=== PATIENT | male | born 1930 | race Caucasian/White ===

== ENCOUNTER 2020-03-16 10:07 | Inpatient (IN) | payer OTHER ==
[~2020-03-16] VITALS: Ht 177.8 cm; Wt 94.9 kg
[~2020-03-16 10:07] MED LIST: ASPI325 PO; ASPI81EC PO; ATOR20 PO; CLOP75 PO; DOXA1 PO; ERGO400 PO; ESCI10 PO; FINA5 PO; FLUT.05NI; Flomax0.4 MG PO; GLUCHON PO; HYDR1TAB94 PO; INDO50 PO; KEFLEX500 MG PO; Lopressor 25 mg25 MG PO; NITR.4SL SL; Norco 5-325 Ta1 EACH PO; PRAV10 PO; PROM25 PO; TAMS.4ER PO; TERB250 PO; VITAMINS; Vitamin D2000 UNIT PO; [UNRECOGNIZED DRUG - REMARK]
[2020-03-16 10:34] LABS: BASOPHILS ABSOLUTE AUTO 0.06 K/mm3 (0.00-0.23); BASOPHILS PERCENT AUTO 1 % (0-2); EOSINOPHILS ABSOLUTE AUTO 0.11 K/mm3 (0.00-0.68); EOSINOPHILS PERCENT AUTO 1 % (0-6); Hematocrit 49.8 % (37.0-53.0); Hemoglobin 15.3 g/dL (13.5-17.5); IMMATURE GRAN ABSOLUTE AUTO 0.03 K/mm3 (0.00-0.10); IMMATURE GRAN PERCENT AUTO 0 % (0-1); LYMPHOCYTES ABSOLUTE AUTO 1.86 K/mm3 (0.84-5.20); LYMPHOCYTES PERCENT AUTO 19 % (21-46); MONOCYTES ABSOLUTE AUTO 0.53 K/mm3 (0.16-1.47); MONOCYTES PERCENT AUTO 5 % (4-13); Mean Corpuscular HGB 29.7 pg (26.0-34.0); Mean Corpuscular HGB Conc 30.7 g/dL (31.5-36.5); Mean Corpuscular Volume 97 fL (80-100); Mean Platelet Volume 10.9 fL (9.1-12.4); NEUTROPHILS ABSOLUTE AUTO 7.33 K/mm3 (1.96-9.15); NEUTROPHILS PERCENT AUTO 74 % (41-73); Platelet Count 247 K/mm3 (150-400); RDW Standard Deviation 50.1 fL (35.1-46.3); Red Blood Cell Count 5.16 M/mm3 (4.30-5.90); White Blood Cell Count 9.92 K/mm3 (4.00-11.30)
[2020-03-16 10:49] LABS: Alanine Aminotransfer (ALT/SGP 29 U/L (12-78); Albumin, Blood 2.8 g/dL (3.4-5.0); Albumin/Globulin Ratio 0.6 (0.8-1.8); Alk Phos 88 U/L (50-136); Anion Gap 4 mmol/L (6-16); Aspartate Aminotrans (AST/SGOT 25 U/L (12-37); Bilirubin, Total 0.9 mg/dL (0.1-1.0); Blood Urea Nitrogen 15 mg/dL (8-24); Bun/Creatinine Ratio 18.4 (12.0-20.0); CO2, Blood 25 mmol/L (21-32); Calcium, Blood 8.4 mg/dL (8.5-10.1); Chloride, Blood 113 mmol/L (98-108); Creatinine, Blood 0.82 mg/dL (0.60-1.20); Globulin, Blood 4.5 g/dL (2.2-4.0); Glomerular Filtration Rate >60 (60-); Glucose, Blood 115 mg/dL (70-99); Potassium, Blood 4.1 mmol/L (3.5-5.5); Sodium, Blood 142 mmol/L (136-145); Total Protein, Blood 7.3 g/dL (6.4-8.2)
[2020-03-16 11:45] LABS: Influenza A, PCR Negative (NEGATIVE); Influenza B, PCR Negative (NEGATIVE); Resp Syncytial Virus, PCR Negative (NEGATIVE); SARS-Cov-2 (COVID-19) PCR, MMC Negative (NEGATIVE)
--- NOTE | 2020-03-16 17:21 | NUR ---
ASSUMED CARE: PT ARRIVED FROM ED VIA GURNEY. WEARING 4L O2 AT THIS TIME. TAPING MACHINE OPERATOR ARRIVED SHORTLY AFTER PT DID. TAPING MACHINE OPERATOR AT BEDSIDE AT THIS TIME.
--- NOTE | 2020-03-16 17:57 | NUR ---
CALL TO PHARMACY TO VERIFY THAT LOVENOX WAS THEREPEUTICALLY ORDERED FOR PE'S AND DVT, PER REPORT FROM ED RN. KEEP SCDS OFF DUE TO REPORT OF DVT. CLINICAL COORDINATOR AWARE.
[2020-03-16 18:57] LABS: Source, Urine Clean Catch
--- NOTE | 2020-03-16 19:04 | NUR ---
SHIFT SUMMARY: PT ED ADMIT TODAY, ECHO COMPLETED. PT INSISTANT AND IMPULSIVE ABOUT GOING TO BATHROOM. BSC NEXT TO BED, PT DESATURATED INTO 70S AND FINGERTIPS TURNED PURPLE. O2 INCREASED TO 5L. NORMAL SALINE RUNNING. TELE IN PLACE. NSR. BED ALARM ON.
[2020-03-16 19:24] LABS: Appearance, Urine Clear (Clear); Bilirubin, Urine Neg (Neg); Blood, Urine 4+ (Neg); Color, Urine Yellow (P-Yellow); Glucose Qualitative, Urine Neg (Neg); Ketones, Urine 1+ (Neg); Leukocyte Esterase, Urine 2+ (Neg); Nitrite, Urine Neg (Neg); Protein, Urine 2+ (Neg); Urobilinogen, Urine 3+ (Normal)
[2020-03-16 19:38] LABS: Bacteria Few /hpf; Spermatozoa Few /hpf; Squamous Epithelial Cells Rare /hpf (Few)
[2020-03-17 03:50] LABS: BASOPHILS ABSOLUTE AUTO 0.05 K/mm3 (0.00-0.23); BASOPHILS PERCENT AUTO 1 % (0-2); EOSINOPHILS ABSOLUTE AUTO 0.15 K/mm3 (0.00-0.68); EOSINOPHILS PERCENT AUTO 2 % (0-6); Hematocrit 43.4 % (37.0-53.0); Hemoglobin 13.4 g/dL (13.5-17.5); IMMATURE GRAN ABSOLUTE AUTO 0.04 K/mm3 (0.00-0.10); IMMATURE GRAN PERCENT AUTO 0 % (0-1); LYMPHOCYTES ABSOLUTE AUTO 2.08 K/mm3 (0.84-5.20); LYMPHOCYTES PERCENT AUTO 22 % (21-46); MONOCYTES PERCENT AUTO 6 % (4-13); Mean Corpuscular HGB 29.6 pg (26.0-34.0); Mean Corpuscular HGB Conc 30.9 g/dL (31.5-36.5); Mean Corpuscular Volume 96 fL (80-100); Mean Platelet Volume 10.7 fL (9.1-12.4); NEUTROPHILS ABSOLUTE AUTO 6.76 K/mm3 (1.96-9.15); NEUTROPHILS PERCENT AUTO 70 % (41-73); Platelet Count 218 K/mm3 (150-400); RDW Standard Deviation 49.5 fL (35.1-46.3); Red Blood Cell Count 4.53 M/mm3 (4.30-5.90); White Blood Cell Count 9.68 K/mm3 (4.00-11.30)
[2020-03-17 04:12] LABS: Alanine Aminotransfer (ALT/SGP 20 U/L (12-78); Albumin, Blood 2.3 g/dL (3.4-5.0); Albumin/Globulin Ratio 0.6 (0.8-1.8); Alk Phos 82 U/L (50-136); Anion Gap 4 mmol/L (6-16); Aspartate Aminotrans (AST/SGOT 19 U/L (12-37); Bilirubin, Total 0.5 mg/dL (0.1-1.0); Blood Urea Nitrogen 14 mg/dL (8-24); CO2, Blood 22 mmol/L (21-32); Calcium, Blood 7.9 mg/dL (8.5-10.1); Chloride, Blood 118 mmol/L (98-108); Globulin, Blood 3.8 g/dL (2.2-4.0); Glomerular Filtration Rate >60 (60-); Glucose, Blood 91 mg/dL (70-99); Potassium, Blood 4.1 mmol/L (3.5-5.5); Sodium, Blood 144 mmol/L (136-145); Total Protein, Blood 6.1 g/dL (6.4-8.2)
--- NOTE | 2020-03-17 06:33 | NUR ---
SHIFT SUMMARY PT IS VERY FORGETFUL AND DISORIENTED, FORGETS WHAT HE IS TOLD WITHIN MINUTES. PT IS PLEASENT AND COOPERATIVE WITH CARE, FOLLOWS DIRECTIONS, AND DOES NOT PULL AT LINES AND TUBES. PT IS ON 5LPM VIA NC WITH O2 SATS IN THE 90'S, SATS DROP TO THE 80'S WITH ANY ACTIVITY, PT ABLE TO STAND AND USE URNAL BUT O2 SATS DROP TO LOW 80'S. PT BECOMES SOB AND SITS BACK IN BED, BREATHING RESOLVES WITHIN MINUTES. BP AND HR STABLE. PT HAD A QUIET UNEVENTFUL EVENING. CONTINUE TO ORIENT PT TO ROOM AND SITUATION. WILL CONTINUE TO MONITOR UNTIL SHIFT CHANGE.
--- NOTE | 2020-03-17 10:53 | NUR ---
0830 COUGH PT WITH SOME COUGHING AFTER SIPS OF WATER, DISCUSSED WITH DR RUIZ WHEN ROUNDING.
--- NOTE | 2020-03-17 12:02 | NUR ---
pt remains forgetful, asked twice wityhin a one minute period where he is and does not recall being in the hospital
--- NOTE | 2020-03-17 12:28 | NUR ---
spoke via phone with patients julieta allen. per julieta patient has not taken any of his medications for the last 3 weeks and has had very little po intake. julieta states she will not be in to visist today as is not feeling well
--- NOTE | 2020-03-17 13:13 | NUR ---
DNR BAND VERIFIED WITH JOSE GUADALUPE NOONAN RN. BAND PLACED TO PATIENT'S LEFT WRIST.
--- NOTE | 2020-03-17 17:42 | NUR ---
PT REMAINS ORIENTED TO PERSON, AT TIMES AWARE HE IS IN THE HOSPITAL BUT STATES NO ONE HAS GIVEN HIM ANY INFORMATION ON WHY HE IS IN HOSPITAL. PT REMOVED CLOTHING AND IV- NEW IV INSERTED. PT FEEDING SELF MECH SOFT DIET AT THIS TIME NO COUGHING NOTED PT WITH OCC REPORT OF LEFT SIDED BACK PAIN-GRIMACES WITH MOVEMENT. PT IS 1-2 PERSON ASSIST TO RESTROOM UNSTEADY ON FEET. BED ALARM IN PLACE THROUGHOUT SHIFT.
--- NOTE | 2020-03-17 20:45 | NUR ---
PRIMARY RN NOTIFIED ME THAT PATIENT'S IV HAD INFILTRATED. NEW IV STARTED TO PATIENT'S LEFT WRIST. PATIENT TOLERATED WELL. IV TO RIGHT UPPER ARM INFILTRATED WITH SWELLING AND BRUISING APPROX 6 INCHES IN DIAMETER AROUND IV SITE. REMOVED IV SITE. WRAPPED WITH COBAND COMPRESS AND APPLIED KPAD. NOTIFIED PRIMARY RN.
--- NOTE | 2020-03-18 05:44 | NUR ---
SUMMARY PATIENT IS ALERT AND ORIENTED TO SELF ONLY. PATIENT CONTINUALLY CLIMBING OUT OF BED, IS CONFUSED, HAS A WEAK UNSTEADY GAIT. ATTEMPTED TO REORIENT PATIENT, DISTRACT, REDIRECT, AND TOILET PATIENT, HE CONTINUED TO GET UP UNSUPERVISED. CALLED AND RESTRAINT ORDERS FOR VEST RECIEVED. PATIENT TOLERATED VEST WELL AND SLEPT MOST THE NIGHT WITH AMBULATION TO THE BATHROOM WHEN PATIENT REQUESTED OR TRIED TO GET UP. 02 SATS >90% ON 5L VIA NC. VSS, NO ACUTE CHANGES. BED ALARM ON, CALL LIGHT IN REACH. WILL CONTINUE TO MONITOR.
--- NOTE | 2020-03-18 17:46 | NUR ---
SHIFT SUMMARY; A/A/OX4 THROUGHOUT SHIFT. 2L 02 VIA NC. LAURA VEST REMOVED TODAY. COOPERATIVE AND REDIRECTABLE WITH CARE. STATUS CHANGED TO MEDICAL. DISCHARGE PLANNERS WORKING WITH SPOUSE ON POSSIBLE PLACEMENT. NO ACUTE MEDICAL CHANGES, WILL CONTINUE TO MONITOR UNTIL CHANGE OF SHIFT.
--- NOTE | 2020-03-19 04:21 | NUR ---
SUMMARY PATIENT IS ALERT AND ORIENTED TO SELF ONLY. PATIENT GOT UP SEVERAL TIMES WITHOUT CALLING FOR HELP, HAS UNSTEADY GAIT, AND IS A HIGH FALL RISK. REORIENTED PATIENT, OFFERED TOILETING, REPOSITIONED, AND TRIED TO REDIRECT/PROVIDE DESTRACTION, BUT PATIENT CONTINUED TO TRY TO AMBULATE WITHOUT ASKING FOR HELP. CALLED AND ORDERS FOR LAURA VEST. PATIENT TOLERATED VEST WELL, PATIENT WAS TOILETED THROUGHOUT THE NIGHT. PATIENT EVENTUALLY FELL ASLEEP AND SLEPT MOST THE NIGHT. WATER PROVIDED FROM SIPPY CUP. 02 SATS >90% ON 3L VIA NC. VSS, NO ACUTE CHANGES. CALL LIGHT IN REACH, BED IN LOW POSITION, WILL CONTINUE TO MONITOR.
[2020-03-19 04:35] LABS: Anion Gap 7 mmol/L (6-16); Blood Urea Nitrogen 13 mg/dL (8-24); CO2, Blood 23 mmol/L (21-32); Calcium, Blood 8.3 mg/dL (8.5-10.1); Chloride, Blood 111 mmol/L (98-108); Creatinine, Blood 0.69 mg/dL (0.60-1.20); Glomerular Filtration Rate >60 (60-); Glucose, Blood 105 mg/dL (70-99); Potassium, Blood 4.1 mmol/L (3.5-5.5); Sodium, Blood 141 mmol/L (136-145)
--- NOTE | 2020-03-19 11:37 | NUR ---
NURSE NOTE; UP TO RESTROOM FOR BM. BRIGHT RED BLOOD FROM RECTUM WITHOUT STOOL. DR. RUIZ NOTIFIED AND INTO ROOM TO ASSESS. HOLD XERALTO PER DR. RUIZ AND PLACE GI CONSULT. WILL CONTINUE TO MONITOR.
[2020-03-19 12:35] LABS: Hemoglobin 12.4 g/dL (13.5-17.5); Mean Corpuscular HGB 30.1 pg (26.0-34.0); Mean Corpuscular HGB Conc 31.8 g/dL (31.5-36.5); Mean Corpuscular Volume 95 fL (80-100); Platelet Count 204 K/mm3 (150-400); RDW Coefficient Variation 13.8 % (11.7-14.2); RDW Standard Deviation 48.3 fL (35.1-46.3); Red Blood Cell Count 4.12 M/mm3 (4.30-5.90)
[2020-03-19 15:25] LABS: Influenza A, PCR Negative (NEGATIVE); Influenza B, PCR Negative (NEGATIVE); Resp Syncytial Virus, PCR Negative (NEGATIVE); SARS-Cov-2 (COVID-19) PCR, MMC Negative (NEGATIVE)
--- NOTE | 2020-03-19 18:00 | NUR ---
SHIFT SUMMARY; ASSUMED CARE AT 0700. RESTING AWAKE IN BED WITH LAURA VEST INPLACE. UP TO BEDSIDE COMMODE WITH ASSISTANCE. BRIGHT RED BLOOD IN COMMODE WHEN ATTEMPTING BM X3 TIMES. GI NOTIFIED. BOWEL PREP COMPLETE FOR ENDOSCOPY TONIGHT. REMAINS INTERMITANTLY CONFUSED WITH HX OF DEMENTIA. BED ALARM, LAURA VEST IN PLACE. REPOSITIONS SELF IN BED, BILATERAL SCDS IN PLACE. XERALTO AND ASA HELD TODAY DUE TO GI BLEEDING. VSS, NPO AT THIS TIME WAITING COLONOSCOPY. WILL CONTINUE TO MONITOR AND TREAT UNTIL CHANGE OF SHIFT.
--- NOTE | 2020-03-19 20:09 | NUR ---
03/19/202008 Nilson Díaz History, Chart, Medications and Allergies reviewed before start of procedure.MONITOR INTACT WITH CONTINUOUS PULSE OXIMETRY AND INTERMITTENT BP.3-LEAD EKG REVIEWED WITH PHYSICIAN PRIOR TO START OF PROCEDURE.O2 VIA N/C INTACT THROUGHOUT SEDATION/PROCEDURE. See Anesthesia record.
--- NOTE | 2020-03-20 04:17 | NUR ---
SUMMARY PATIENT IS ALERT AND OREIENTED TO SELF ONLY. PATIENT RETURNED FROM PROCEDURE AT 2039 AND TRANSFERED TO HIS BED WITH TWO PERSON ASSIST. PATIENT IS IN VEST BECAUSE HE IS A HIGH FALL RISK, FORGETS LIMITATIONS, WEAKNESS, CONFUSED, AND CONSTANTLY GETS UP WITHOUT ASKING FOR ASSISTANCE. PATIENT IS TOLERATING VEST WELL AND HAS SLEPT MOST THE SHIFT. OFFERED TOILETTING REGULARLY. 02 SATS >90% ON 2L VIA NC. VSS, NO ACUTE CHANGES. BED ALARM ON, CALL LIGHT IN REACH. WILL CONTINUE TO MONITOR.
[2020-03-20 07:19] LABS: Hematocrit 41.2 % (37.0-53.0); Hemoglobin 13.1 g/dL (13.5-17.5); Mean Corpuscular HGB 30.4 pg (26.0-34.0); Mean Corpuscular HGB Conc 31.8 g/dL (31.5-36.5); Mean Corpuscular Volume 96 fL (80-100); Mean Platelet Volume 10.8 fL (9.1-12.4); Platelet Count 214 K/mm3 (150-400); RDW Standard Deviation 49.5 fL (35.1-46.3); Red Blood Cell Count 4.31 M/mm3 (4.30-5.90); White Blood Cell Count 8.85 K/mm3 (4.00-11.30)
--- NOTE | 2020-03-20 07:27 | NUR ---
Pt is pleasantly conversant, confused, and cooperative. He is talking with Dr. Heredia at this time. Has no specific complaints, but states that his memory is "shot". Appears to be calm, comfortable. Denies pain/difficulty breathing.
[2020-03-20 07:31] LABS: Anion Gap 6 mmol/L (6-16); Blood Urea Nitrogen 12 mg/dL (8-24); Bun/Creatinine Ratio 16.7 (12.0-20.0); CO2, Blood 25 mmol/L (21-32); Calcium, Blood 8.6 mg/dL (8.5-10.1); Chloride, Blood 114 mmol/L (98-108); Creatinine, Blood 0.72 mg/dL (0.60-1.20); Glomerular Filtration Rate >60 (60-); Glucose, Blood 103 mg/dL (70-99); Potassium, Blood 4.1 mmol/L (3.5-5.5); Sodium, Blood 145 mmol/L (136-145)
[2020-03-20 07:51] LABS: BASOPHILS ABSOLUTE MAN 0.08 K/mm3 (0.00-0.23); BASOPHILS PERCENT MAN 1 % (0-2); EOSINOPHILS ABSOLUTE MAN 0.61 K/mm3 (0.00-0.68); EOSINOPHILS PERCENT MAN 7 % (0-6); LYMPHOCYTES ABSOLUTE MAN 1.59 K/mm3 (0.84-5.20); LYMPHOCYTES PERCENT MAN 18 % (21-46); MONOCYTES PERCENT MAN 8 % (4-13); NEUTROPHILS ABSOLUTE MAN 5.84 K/mm3 (1.96-9.15); SEG NEUTROPHILS PERCENT MAN 66 % (41-73); TOTAL CELLS COUNTED 100
--- NOTE | 2020-03-20 10:41 | NUR ---
Spoke with Dr Heredia prior to Pt's visit and discussed case. Pt has diagnosis of rectal cancer, dementia, and PE. Family discussion regarding goals of care may be beneficial. Spoke with Dr Braden and discussed case. Dr Braden reports no treatment options are available for Pt. Pt has poor prognosis. Spoke with Bedside RN Daiana and discussed case. Daiana reports Pt is significantly forgetful but is able to have meaningful conversations. Pt resting in bed with his eyes closed. Pt resting comfortably and soundly with no response to gentle verbal stimuli. This RN did not attempt to disturb Pt any further. Pt appears comfortable with no S/S of distress at this time. Attempted to call Pt's spouse Mariposa. Left voice message with request for a return phone call. Plan: Discussion regarding goals of care with family. Palliative Care will remain available.
--- NOTE | 2020-03-20 10:44 | NUR ---
Daughter Charissa called on the phone to ask for update on pt condition. Her phone number was given to Wili Prescott, from palliative care services. Wili plans on talking with the pt's , Bria and also to Charissa. Jermaine has been napping since receiving apple juice, milk and coffee as well as scheduled morning medications. This morning he was talkative, looking out the window, remarking about the view, carrying on conversation with staff, and asking for a lot of liquids to drink; however, showed no interest in his solid food when it came from the kitchen.
--- NOTE | 2020-03-20 15:35 | NUR ---
Case Conference Note Met with Pt's spouse Mariposa and Dr Heredia in Palliative Care office. Engaged in therapeutic visit regarding goals of care. Assessed Mariposa's understanding of Pt's condition and prognosis. Discussed comfort care and hospice as an option. Educated on comfort care and hospice philosophy with V/U made by Mariposa. Dr Heredia answers questions and discusses options further. Mariposa elects to place Pt on comfort care. Mariposa reports wishes for hospice but states she can no longer care for Pt in his current condition and is requesting assistance with placement. BERNABE Poe arrives and listens to conerns. Mariposa reports no other concerns and expresses appreciation of conversation. With verbal permission from Mariposa this RN called and provided update wot Pt's daughter Charissa. Engaged in therapeutic discussion regarding comfort care and hospice. Educated on comfort care philosophy with V/U made by Charissa. Charissa reports being in agreement with plan. Placed orders for comfort care, comfort care order set, and D/C maintenance medications per V/O from Dr Heredia. BERNABE Poe will contact [facility] regarding possibility of placement with hospice. Palliative Care will remain available for symptom management and supportive visits.
--- NOTE | 2020-03-20 15:39 | NUR ---
Assisted the pt from the Bedside commode back into bed afterhe passed about 300cc of red liquid stool. He was able to follow directions, use the walker and get back to bed with minimal assistance. His is at the bedside. Pt keeps repeating his question of " what is wrong with me?" is answering, "all the body parts are just giving out".
--- NOTE | 2020-03-20 16:40 | NUR ---
Called and talked with Lilia who said that she didn't want to take report yet as the pt's arrival time coincides with their shift change. She wants to talk with Shobha, her primer charger first. Gave Lilia our call back number here in PCU. Plan is for pt to transfer to [place] hospice care.
[2020-03-20 16:56] LABS: Influenza A, PCR Negative (NEGATIVE); Influenza B, PCR Negative (NEGATIVE); Resp Syncytial Virus, PCR Negative (NEGATIVE); SARS-Cov-2 (COVID-19) PCR, MMC Negative (NEGATIVE)
--- NOTE | 2020-03-20 17:15 | NUR ---
Report given by telephone to Shobha Mayorga, receiving lining feller at the [facility].
== END 2020-03-20 19:07 | DRG 175 ==
LOC: ER 10:07 → PCU 16:51
PROVIDERS: Emergency Medicine; Family Medicine; Internal Medicine Gastroenterology; Nurse Practitioner Acute Care; ADMIT Hospitalist
PROC: 0DJD8ZZ Inspection of Lower Intestinal Tract, Via Natural or Artificial Opening Endoscopic (ICD-10-PCS; principal; 2020-03-19 18:00)
DX: I26.99 Other pulmonary embolism without acute cor pulmonale (principal); J96.01 Acute respiratory failure with hypoxia; I50.21 Acute systolic (congestive) heart failure; C20 Malignant neoplasm of rectum; Z20.828 Contact with and (suspected) exposure to other viral communicable diseases; Z66 Do not resuscitate; Z78.1 Physical restraint status; Z51.5 Encounter for palliative care; I11.0 Hypertensive heart disease with heart failure; E78.5 Hyperlipidemia, unspecified; N40.0 Benign prostatic hyperplasia without lower urinary tract symptoms; G31.84 Mild cognitive impairment of uncertain or unknown etiology; I25.10 Atherosclerotic heart disease of native coronary artery without angina pectoris; F03.90 Unspecified dementia, unspecified severity, without behavioral disturbance, psychotic disturbance, mood disturbance, and anxiety; Z95.5 Presence of coronary angioplasty implant and graft; Z79.82 Long term (current) use of aspirin; Z79.51 Long term (current) use of inhaled steroids
CPT/HCPCS: 0241U; 36415; 70450; 71045; 71260; 80048; 80053; 81001; 83605; 83735; 84484; 85007; 85025; 85027; 87040; 87086; 92526; 92610; 93005; 93010; 93970; 96365-59; 96366; 96367-59; 97110; 97162; 99285-25; A9270; A9270-GY; C8929; J0456; J0696; J1650; J2370; J2405; J2704; J7030; J7050; J7120; Q9957; Q9967